=== PATIENT | female | born 2005 | race African-American/Black ===

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

== ENCOUNTER 2024-02-26 14:09 | Emergency (ER) | payer BC, MEDICAID ==
[~2024-02-26] VITALS: Ht 162.6 cm; Wt 60.0 kg
[~2024-02-26 14:09] MED LIST: BO1 TP; CEPH500C2 MT; IBUP-2029 MT
[2024-02-26 14:13] VITALS: BP 109/74; PULSE 64; RESP 15; O2SAT 100
[2024-02-26 17:36] LABS: HCG SCREEN NEGATIVE
[2024-02-26 19:35] VITALS: TEMP 98.8
[2024-02-26] MEDS: ACETAMINOPHEN 325MG TABLET PO ONE (19:35)
== END 2024-02-26 20:16 | disposition home or self-care (01) ==
LOC: ER 14:09
DX: R10.30 Lower abdominal pain, unspecified (principal); Z98.890 Other specified postprocedural states
CPT/HCPCS: 76830; 76856; 84703; 99284